=== PATIENT | female | born 1995 | race Caucasian/White ===

== ENCOUNTER 2017-10-06 17:22 | Emergency (ER) | payer OTHER ==
[2017-10-06 17:28] VITALS: TEMP 98.1
[2017-10-06] MEDS ORDERED: ONDANSETRON DISINTEGRATING 4 MG TAB ONE (17:38)
[2017-10-06] MEDS ORDERED: ONDANSETRON DISINTEGRATING 4 MG TAB PO ONE (17:38)
[2017-10-06] MEDS ORDERED: DIAZEPAM 5 MG TAB PO ONE (17:40)
--- NOTE | 2017-10-06 17:44 | EDPHY ---
H & P Time Seen by Provider: 10/06/17 17:27 HPI/ROS: HPI Panic attack. 22-year-old female by private vehicle with her friend. This patient has a history of anxiety and panic attacks. She was prescribed Lexapro by her psychiatrist starting yesterday. She took a dose yesterday and dose this morning. She reports about an hour prior to arrival she developed a severe panic attack. She describes this as feeling like she is in uncontrolled state and shaking all over and not able to think clearly. She reports that she has not had panic attacks previously as bad as this 1. She reports that she takes Xanax once a while for her panic attacks. She has not had any Xanax today. She denies any street drugs or alcohol. She has a psychiatrist named Dr. edward ospina who is local and prescribe her these medications. She denies significant depression. No suicidal thoughts. ROS: Constitutional: No fever, no chills. As above. Eyes: No discharge. No changes in vision. ENT: No sore throat. No nasal congestion or rhinorrhea. Respiratory: No cough. No shortness of breath. Cardiac: No chest pain, no palpitations. Gastrointestinal: No abdominal pain, no vomiting, no diarrhea. Genitourinary: No hematuria. No dysuria or increased frequency with urination. Musculoskeletal: No back pain. No neck pain. No myalgias or arthralgias. Skin: No rashes. Neurological: No headache. No focal weakness or altered sensation. Past medical history: As above. Otherwise denies any past medical history. Social history: [employer]. Here with her friend. Nonsmoker. No alcohol. Physical Exam: General Appearance: Alert, very anxious and panicked. This patient is responding to questions appropriately and in full sentences. This patient appears well-hydrated and well-nourished. Eyes: Pupils equal and round no pallor or injection. No lid edema, erythema or injection. ENT, Mouth: Mucous membranes are moist. The pharyngeal tissues are unremarkable. No edema or swelling. No asymmetry suggestive of abscess. No erythema or exudates. Respiratory: There are no retractions, lungs are clear to auscultation with good air movement bilaterally. Cardiovascular: Regular rate and rhythm. Tachycardia. No murmur. Gastrointestinal: Abdomen is soft and nontender, no masses, bowel sounds normal. No focal tenderness at McBurney's point. No Cadena sign. Neurological: Motor sensory function is grossly intact. Cranial nerves are normal. Gait is normal. Skin: Warm and dry, no rashes. Musculoskeletal: Neck is supple and nontender. Extremities are symmetrical. All joints range without pain or impingement. Psychiatric: No agitation. No depression. Database: EKG: Imaging: Procedures: Emergency department course: Vital signs reviewed. Her medication allergies reviewed. She is not driving. She was given 10 mg of oral Valium. 6:45 p.m., patient re-evaluated. She is feeling much better. States she feels much more relaxed. She denies any depression. No suicidal thoughts. She feels comfortable going home with her friend at this time. She will follow up with her psychiatrist tomorrow to discuss alternative medication for her anxiety. Return to emergency department precautions reviewed with her. All of her questions were answered. She was discharged home in good condition with her friend who is driving. Differential Diagnosis: The differential diagnosis on this patient includes but is not limited to panic attack, anxiety reaction possible medication reaction. Severe major depression , suicidal thoughts unlikely. This represents a partial list of diagnoses considered. These considerations are based on history, physical exam, past history, reassessment and diagnostic testing. Smoking Status: Never smoked Constitutional: Initial Vital Signs Temperature (C) 36.7 C 10/06/17 17:23 Heart Rate 130 H 10/06/17 17:23 Respiratory Rate 27 H 10/06/17 17:23 Blood Pressure 149/120 H 10/06/17 17:23 O2 Sat (%) 100 10/06/17 17:23 O2 Delivery Mode Room Air Allergies/Adverse Reactions: No Known Allergies Allergy (Unverified 10/06/17 17:22) Home Medications: Medication Instructions Recorded [facility] 10/06/17 Lexapro 10/06/17 Medical Decision Making - Data Points Medications Given: Discontinued Medications Diazepam (Valium) 10 mg PO EDNOW ONE Stop: 10/06/17 17:41 Last Admin: 10/06/17 17:44 Dose: 10 mg Ondansetron HCl (Zofran Odt) 4 mg PO EDNOW ONE Stop: 10/06/17 17:39 Last Admin: 10/06/17 17:40 Dose: 4 mg Departure - Departure Disposition: Home, Routine, Self-Care Clinical Impression: Panic attack Condition: Good Additional Instructions: Read and follow provided instructions. Follow-up with your psychiatrist tomorrow for re-evaluation and discussion of further management of your anxiety and panic attacks. Return to the emergency department for worsening symptoms or other serious concerns. Referrals: NONE *PRIMARY CARE P,. [Primary Care Provider] - As per Instructions Stand Alone Forms: School Excuse
[2017-10-06 18:35] VITALS: RESP 14
[2017-10-06 19:08] VITALS: BP 130/97; PULSE 76; O2SAT 97
== END 2017-10-06 19:06 | disposition home or self-care (01) ==
DX: F41.0 Panic disorder [episodic paroxysmal anxiety] (principal)